=== PATIENT | female | born 1955 | race Caucasian/White ===

== ENCOUNTER 2019-10-22 17:43 | Inpatient (IN) ==
--- NOTE | 2019-10-22 18:34 | PROVIDER DOCUMENTATION ---
HPI-Abdominal Pain/GI Problem - General Chief Complaint: Abdominal Pain Stated Complaint: ABD PAIN / SOB Time Seen by Provider: 10/22/19 18:12 Source: patient Allergies/Adverse Reactions: Patient Allergies Allergy/AdvReac Type Severity Reaction Status Date / Time codeine Allergy ITCHING Verified 01/24/19 15:37 Home Medications: Home Medication List Medication Instructions Recorded Confirmed Last Taken Type Citalopram [Celexa] 40 mg PO DAILY 01/24/19 10/23/19 10/22/19 09:00 History Losartan Potassium 100 mg PO DAILY 01/24/19 10/23/19 10/22/19 09:00 History Meloxicam 15 mg PO DAILY 01/24/19 10/23/19 10/22/19 09:00 History Multivitamin [Multivitamins] 1 ea PO DAILY 01/24/19 10/23/19 10/22/19 09:00 History - History of Present Illness-ABD Nature of Presenting Problems: Patient is a 64 year old white female,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 Patient is already under the care of DR. De Leon for evaluation of her abdominal pain. pateint ate chili today. Just arrived from work. Abdominal Pain Onset Location: reports: generalized abdomen Quality of Pain: reports: aching Onset/Duration: reports: other (over 1 month) Activities at Onset: reports: none Associated Symptoms: reports: nausea. denies: vomiting Last BM: this afternoon Dark Stools Present?: reports: none noticed Rectal Bleeding: reports: none Rectal Pain: reports: none Emesis Description: reports: none Review of Systems - Adult - REVIEW OF SYSTEMS - ADULT Constitutional: denies: chills, fever Eyes: reports: no symptoms reported Ears, Nose, Mouth & Throat: reports: no symptoms reported Cardiovascular: denies: chest pain Respiratory: reports: shortness of breath, wheezing. denies: cough Gastrointestinal: reports: abdominal pain (upper abdomen), constipation, diarrhea, nausea. denies: vomiting Genitourinary: denies: dysuria Musculoskeletal: reports: no symptoms reported Integumentary: reports: no symptoms reported Neurological: reports: no symptoms reported Psychiatric: reports: no symptoms reported Endocrine: reports: no symptoms reported Hematologic/Lymphatic: reports: no symptoms reported Allergic/Immunologic: reports: no symptoms reported All Other Systems: Reviewed and Negative Past History - Adult - PAST MEDICAL HISTORY-ADULT Review of Records: reports: Old Records Reviewed, Nursing Assessment Review, Medications Reviewed, Social history reviewed & non-contributory. Major Childhood Illnesses: reports: denies history Cardiovascular: reports: denies history Respiratory: reports: COPD Gastrointestinal: reports: denies history Genitourinary: reports: denies history Musculoskeletal: reports: denies history Neurological: reports: denies history Psychiatric: reports: denies history Endocrine/Immune: reports: denies history - PRIOR SURGERIES/PROCEDURES Surgical/Procedure History: reports: cholecystectomy - IMMUNIZATION STATUS Childhood Immunizations: UTD, See Nurse Assessment Flu Vaccine: See Nurse Assessment - FAMILY HISTORY Family History: reviewed, not pertinent - SOCIAL HISTORY Smoking: less than 1 pack/day (1/2 ppd for past 30 years) Substance Use: denies Alcohol Use Frequency: occasionally Living Situation: family Occupation: poultry worker Physical Exam-General - PHYSICAL EXAM-ADULT Initial Vital Signs Reviewed: Yes - CONSTITUTIONAL General Appearance: alert, obese - EYES Eyes: other (clear) - HEAD, EARS, NOSE, MOUTH & THROAT HENMT: normocephalic/atraumatic, moist mucous membranes - NECK Neck: non-tender, full range of motion, supple - RESPIRATORY Respiratory: no respiratory distress, no accessory muscle use, decreased breath sounds, wheezing - CARDIOVASCULAR Cardiovascular: normal peripheral pulses, regular rate, rhythm - GASTROINTESTINAL (ABDOMEN) Abdominal Exam: soft, tenderness (epigastric tenderness). negative: guarding, rebound - LYMPHATIC Lymphatic: no adenopathy - MUSCULOSKELETAL Back Exam: no CVA tenderness Extremity: normal range of motion, non-tender Peripheral Pulses: radial (R): 2+, radial (L): 2+ - SKIN Integumentary: normal color, normal turgor, warm/dry - NEUROLOGIC Neurologic: grossly normal - PSYCHIATRIC Psych/Mental Status: oriented x 3, anxious Progress - PLAN OF CARE/RESULTS Progress/Plan/Lab Results: Vital Signs - 8 hr 10/22/19 17:48 Temperature 97.8 F Pulse Rate 87 Respiratory Rate 22 Blood Pressure 154/106 O2 Sat by Pulse Oximetry 93 L Orders Category Date Time Status Saline Loc DIRECTED Care 10/22/19 18:12 Active NPO Diet 10/22/19 18:12 Active FLAT/UPRIGHT ABD/1 VIEW CHEST [RAD] Stat Exams 10/22/19 18:21 Ordered CBC WITH ELECTRONIC DIFF [HEME] Stat Lab 10/22/19 18:12 Ordered COMPREHENSIVE METABOLIC PANEL [CHEM] Stat Lab 10/22/19 18:12 Uncollected LIPASE [CHEM] Stat Lab 10/22/19 18:12 Uncollected URINALYSIS W/POSS RFLX CULT [URINALYSIS] Stat Lab 10/22/19 18:12 Uncollected Result Diagrams: 10/22/19 18:30 10/22/19 18:30 - CONSULTS/PCP/HOSPITALIST Notification #1 *Consult/PCP/Hospitalist*: Dr. Ortega Time Discussed: 22:30 Consult Disposition: Admit Departure - Departure Date of Disposition Decision: 10/22/19 Time of Disposition Decision: 23:29 DIAGNOSIS: CHF (congestive heart failure) Qualifiers: Heart failure type: unspecified Heart failure chronicity: acute Qualified Code(s): I50.9 - Heart failure, unspecified Disposition: ADMITTED INPATIENT 09 Certified Medical Emergency: Emergent Condition: Stable - Critical Care Note This patient required my direct & personal management of CC.: No Attestation - Physician/ HERIBERTO Attestation Patient care was provided by Advanced Practice Provider:: No The physician spent face to face time with patient:: Yes Advanced Practice Provider documentation review:: Supervising physician onsite and consulted in the evaluation and care of this patient. The physician did have a face to face encounter with the patient.
[2019-10-22 18:40] LABS: URINE SOURCE CLEAN CATCH
[2019-10-22 18:44] LABS: BASO# 0.04 X1000 (0.0-0.2); BASO% 0.6 % (0.0-0.8); EOS# 0.11 X1000 (0.0-0.7); EOS% 1.5 % (0.0-10.0); HEMATOCRIT 41.7 % (37.0-47.0); HEMOGLOBIN 13.6 g/dL (12.0-16.0); IMM GRAN# 0.01 X1000 (0.0-0.04); IMM GRAN% 0.1 % (0.0-0.5); LYMPH# 1.71 X1000 (1.2-3.4); LYMPH% 23.7 % (20.5-51.1); MCH 31.9 PG (27-31); MCHC 32.6 g/dL (33-37); MCV 97.9 FL (81-99); MONO# 0.47 X1000 (0.11-0.59); MONO% 6.5 % (1.7-9.3); MPV 11.8 FL (7.4-10.4); NEUT# 4.89 X1000 (1.4-6.5); NEUT% 67.6 % (42.2-75.2); PLT 175 X1000 (130-400); RBC 4.26 XMIL (4.2-5.4); RDW 13.6 % (11.5-14.5); WBC 7.23 X1000 (4.8-10.8)
[2019-10-22 18:51] LABS: BILIRUBIN URINE NEGATIVE (NEGATIVE); BLOOD URINE NEGATIVE (NEGATIVE); COLOR YELLOW; GLUCOSE URINE NEGATIVE (NEGATIVE); KETONE URINE NEGATIVE (NEGATIVE); LEUKOCYTES URINE SMALL (NEGATIVE); NITRITE URINE NEGATIVE (NEGATIVE); PROTEIN URINE TRACE mg/dL (NEGATIVE); SP GRAVITY URINE 1.021; TURBIDITY URINE CLEAR (CLEAR); UROBILINOGEN URINE NORMAL (NORMAL)
[2019-10-22 18:53] LABS: UR EPITHELIAL CELLS <10 /HPF (<10); URINE BACTERIA NEGATIVE /HPF; URINE RBC <10 /HPF (<10); URINE WBC <10 /HPF (<10)
[2019-10-22 19:18] LABS: AGAP 12; ALBUMIN 4.6 g/dL (3.5-5.0); ALKALINE PHOSPHATASE 87 U/L (32-104); BUN 16 mg/dL (8-22); CALCIUM 9.4 mg/dL (8.8-10.2); CHLORIDE 105 mmol/L (98-107); COSMO 278; CREATININE 0.7 mg/dL (0.5-0.9); ESTIMATED GFR > 60; GLUCOSE 111 mg/dL (70-104); GOT 22 U/L (10-30); GPT 34 U/L (10-36); LIPASE 24 U/L (13-60); POTASSIUM 4.4 mmol/L (3.5-5.1); SODIUM 138 mmol/L (136-145); TCO2 21 mmol/L (25-35); TOTAL PROTEIN 7.3 g/dL (6.3-8.3)
--- NOTE | 2019-10-22 21:30 | Diag Imaging Result Doc PS360 ---
FLAT/UPRIGHT ABD/1 VIEW CHEST - 10/22/2019 INDICATION: wr TECHNIQUE: COMPARISON: 03/16/2019 FINDINGS: There is cardiomegaly and pulmonary vascular congestion. There is some minimal ill-defined infiltrate or edema in the lung bases. Stable calcified granulomas in the left lung. There are cholecystectomy clips. No definite bowel obstruction or free air. IMPRESSION: 1. Cardiomegaly. Hazy infiltrates in the lung bases may represent pulmonary edema or bronchopneumonia. 2. No acute process in the abdomen. Electronically signed by Dayton Argueta 10/22/2019 9:28 PM
--- NOTE | 2019-10-22 21:50 | Diag Imaging Result Doc PS360 ---
CT ABD/PELVIS/PULM ARTERIES - 10/22/2019 INDICATION: sob TECHNIQUE: Axial CT images were obtained after administering intravenous contrast. Coronal MIP images were generated. COMPARISON: None FINDINGS: CHEST: There is no pulmonary embolism. No adenopathy. There is mild cardiomegaly. There is a small right and trace left pleural effusion. There is hazy interstitial pulmonary edema diffusely throughout the lungs. There are moderate degenerative changes of the spine. No acute or suspicious bony lesion. Abdomen pelvis: There are cholecystectomy clips. There is a small left adrenal gland nodule. This measures about 1.8 cm. Otherwise abdominal organs enhance normally. There is severe diverticulosis throughout the colon. No bowel obstruction or inflammation. Normal appendix. No free air or free fluid. Urinary bladder, uterus, and rectum are normal. There is moderate vascular disease. There are advanced degenerative changes of the spine. No acute or suspicious bony lesion. IMPRESSION: 1. Congestive heart failure. No pulmonary embolism. 2. Small nonspecific left adrenal gland nodule of doubtful significance. 3. Severe diverticulosis throughout the colon. This exam was performed using automated exposure control, adjustment of mA or kV according to patient size, and/or use of iterative reconstruction technique Electronically signed by Dayton Argueta 10/22/2019 9:47 PM
[2019-10-22] MEDS ORDERED: LASIX IV ONE (22:25)
[2019-10-22] MEDS ORDERED: LASIX IV SCH (23:15)
--- NOTE | 2019-10-22 23:29 | EKG Report ---
Test Performed on : 10/22/2019 10:23:29 PM Test Reason : pain Blood Pressure : / mmHG Vent. Rate : 083 BPM Atrial Rate : 083 BPM P-R Int : 144 ms QRS Dur : 142 ms QT Int : 448 ms P-R-T Axes : 055 -35 092 degrees QTc Int : 526 ms Normal sinus rhythm. Possible Left atrial enlargement Left axis deviation Left bundle branch block Abnormal ECG No previous ECGs available Confirmed by Mark Anthony Patel MD ([id number]), purchase request editor Coty Gunn ([id number]) on 11/29/2019 12:38:01 PM
[2019-10-23 07:49] LABS: AGAP 14; BUN 15 mg/dL (8-22); CALCIUM 9.2 mg/dL (8.8-10.2); CHLORIDE 104 mmol/L (98-107); COSMO 285; CREATININE 0.6 mg/dL (0.5-0.9); ESTIMATED GFR > 60; GLUCOSE 113 mg/dL (70-104); POTASSIUM 3.8 mmol/L (3.5-5.1); SODIUM 142 mmol/L (136-145); TCO2 25 mmol/L (25-35)
[2019-10-23 08:01] LABS: TSH 1.55 uIUmL (0.27-4.20)
--- NOTE | 2019-10-23 10:17 | HISTORY AND PHYSICAL ---
PRIMARY CARE PROVIDER: Dr. De Leon. CHIEF COMPLAINT: Shortness of breath. HISTORY OF PRESENT ILLNESS: Ms. Rosenberg is a 64-year-old female, who carries a past medical history of hypertension, anxiety, tobacco use. Reports a 25 pound weight gain since the spring without any significant change in her diet, but denies any significant swelling except for in her abdomen. She reports over the past month or so she has been feeling more short of breath, and she has felt like she has had a knot in her upper mid epigastric area. She also reports that she sleeps in a recliner most nights, but if she does sleep in the bed, she is propped up on multiple pillows. If she tries to lie on her side, she does get a sharp pain in her lungs, but she reports she does not have to sleep sitting up, she chooses to sleep sitting up. However, over the past month, just doing chores around the house or getting up to go to the bathroom, she has noticed that she has become increasingly short of breath and she has to stop and rest. She does have occasional dizziness, some nausea. No chest pain per se or palpitations however, but she did report on [place] she felt like her heart was racing. However, she did feel it was an anxiety attack because she was trying to prepare for [place], and having family over. She also reports she alternates between diarrhea and constipation. She drinks excessively large amounts of water, as well as coffee. She has felt like she has had some subjective fevers, but no chills. She states she does sweat in her sleep at night, but this has been ongoing for years. This is nothing new for her. Workup in the ED revealed an elevated D-dimer which prompted a CT of the chest, abdomen and pelvis that showed pulmonary edema and cardiomegaly and severe diverticulosis. She was initiated on IV Lasix. She has had 2 sets of negative troponins. We will continue with IV diuresis. Check an echocardiogram and venous Dopplers. PAST MEDICAL HISTORY: 1. Hypertension. 2. Anxiety. PAST SURGICAL HISTORY: Cholecystectomy. SOCIAL HISTORY: She is not . She lives alone. She is a half a pack a day smoker, has done so for 30+ years. No alcohol or illicit drug use. She does like to drink lots of water and coffee. She does work at [employer]. FAMILY HISTORY: Mother of congestive heart failure. ALLERGIES: Codeine. HOME MEDICATIONS: 1. Celexa 40 mg p.o. daily. 2. Losartan potassium 100 mg p.o. daily. 3. Multivitamin 1 each p.o. daily. 4. Mobic 15 mg p.o. daily. REVIEW OF SYSTEMS: Twelve-point review of systems completely negative, except for those mentioned in HPI. PHYSICAL EXAMINATION: VITAL SIGNS: Temperature is 98.1 degrees, heart rate 77, respirations 18, blood pressure was 156/101, O2 is 94% on room air. GENERAL: Ms. Rosenberg is an anxious-appearing, 64-year-old female, who is lying in the bed in no acute distress. HEENT: Atraumatic, normocephalic. PERRL. NECK: Supple. Trachea midline. CARDIOVASCULAR: S1, S2 appreciated. No murmurs, gallops or rubs noted. RESPIRATORY: Lung sounds are clear bilaterally. GI: Soft, nontender, nondistended. Positive bowel sounds 4 quadrants. EXTREMITIES: Lower extremities are negative for edema. NEUROLOGIC: No focal deficits noted. She is somewhat anxious. DIAGNOSTIC DATA: CT of the abdomen and pelvis and pulmonary arteries show congestive heart failure. No PE. Small nonspecific left adrenal gland nodule of doubtful significance. Severe diverticulosis throughout the colon. LABORATORY DATA: White count 7, hemoglobin and hematocrit 13 and 41, platelet count is 175. D- dimer 1.62. Sodium 138, potassium 4.4. BUN 16, creatinine 0.7, blood glucose is 111. Two sets of troponins have been negative. ProBNP was 5154. Urinalysis is negative. ASSESSMENT AND PLAN: 1. New onset congestive heart failure exacerbation. Patient has been initiated on intravenous Lasix. We will continue with her home losartan. Strict intakes/outputs, daily weights. We will check an echocardiogram. Continue to trend her cardiac enzymes. 2. Hypertension. Continue home medications. 3. Anxiety. We will continue her home Celexa. 4. Severe diverticulosis. We gave patient education material on diverticulosis. 5. Tobacco use and abuse. Educated patient on smoking cessation, as well as the means to quit. We will need to continue daily education. Further recommendation to follow physician evaluation, laboratory data, diagnostic data. Dictated by ISABEL Olmstead for Seymour Ortega MD cc: MD Akiko Martin MD [facility]
[2019-10-23] MEDS: CELEXA PO SCH (10:34)
[2019-10-23] MEDS: COZAAR PO SCH (10:34)
[2019-10-23] MEDS: MOBIC PO SCH (10:34)
[2019-10-23] MEDS: THERA M PLUS PO SCH (10:35)
[2019-10-23] MEDS: LASIX IV SCH ×2 (10:35→22:00)
--- NOTE | 2019-10-23 12:02 | Vascular Study Report ---
Venous U/S Bilateral Legs - 10/23/2019 INDICATION: elevated d dimer TECHNIQUE: COMPARISON: None FINDINGS: The veins of the lower extremities are fully compressible. There is normal color and pulse wave Doppler signal. IMPRESSION: Negative exam. Electronically signed by Dayton Argueta 10/23/2019 12:00 PM
[2019-10-23 16:38] LABS: T4 6.93 ug/dL (4.60-12.00)
--- NOTE | 2019-10-23 18:26 | HISTORY AND PHYSICAL ---
ADDENDUM: Patient seen and examined by myself. Full note dictated and discussed with nurse practitioner. The patient presented to the hospital with increased cough and congestion, increased work of breathing. She has recently seen Dr. De Leon. We are going to place her on Lasix and follow her for acute systolic congestive heart failure exacerbation. cc: Seymour Ortega MD
[2019-10-24] MEDS: MOBIC PO SCH (08:51)
[2019-10-24] MEDS: THERA M PLUS PO SCH (08:51)
[2019-10-24] MEDS: COZAAR PO SCH (08:52)
[2019-10-24] MEDS: CELEXA PO SCH (08:52)
[2019-10-24] MEDS: LASIX IV SCH (10:36)
--- NOTE | 2019-10-24 12:33 | PROGRESS NOTE ---
DATE: 10/24/2019 SUBJECTIVE: Patient without any new complains. States that is still fatigued and tired but does admit that she is feeling a little bit better. PHYSICAL EXAMINATION: Vital signs: Temperature 98 degrees, pulse 67, respiratory rate 18, BP 141/80, sat 93% on 2 L. General: Patient is very pleasant. She is in no distress. HEENT: Normocephalic. Neck: Supple. Cardiovascular: Regular rate. Chest: Positive upper airway noise, otherwise clear. No wheezing, no crackles. Abdomen: Soft, nondistended. Extremities: Moves all extremities. ASSESSMENT: 1. Congestive heart failure exacerbation. Echo still pending. 2. Hypertension. 3. Anxiety. 4. Chronic tobacco abuse. PLAN: We are going to continue patient in the hospital. Continue to discuss with her the purpose and reasons of stopping smoking. We will continue Lasix although will decrease to 40 IV daily and will follow. cc: Seymour Ortega MD
[2019-10-25] MEDS ORDERED: FLU VACCINE IM ONE (09:00)
[2019-10-25] MEDS ORDERED: LASIX IV SCH (09:00)
[2019-10-25] MEDS: MOBIC PO SCH (09:04)
[2019-10-25] MEDS: CELEXA PO SCH (09:04)
[2019-10-25] MEDS: THERA M PLUS PO SCH (09:04)
[2019-10-25] MEDS: COZAAR PO SCH (09:04)
--- NOTE | 2019-10-25 09:31 | ECHO REPORT ---
ORDER DATE: 10/23/2019 REQUESTING PHYSICIAN: Hospitalist. CHIEF COMPLAINT: Dyspnea. M-MODE MEASUREMENTS: Right ventricle: cm. Left ventricle end diastole: 5.5 cm. Left ventricle end systole: 4.5 cm. Posterior wall: 1.1 cm. Interventricular septum: 1.3 cm. Left atrium: Is not measured. Aortic diameter: 2.7 cm. SUMMARY OF 2-DIMENSIONAL IMAGIN. The left ventricular chamber is significantly dilated. The end systolic volume appears to be in the neighborhood of 83 ml per m2 BSA. There is global impairment of the systolic function of the left ventricle with ejection fraction that may be as low as 34% and as high as 37%. There is basal inferior and inferior interventricular septum hypokinesis more than the rest. That may suggest coronary heart disease. 2. Aortic valve shows no significant abnormality. Color flow mapping is unremarkable. 3. Mitral valve shows a moderate to moderately severe degree of regurgitation. 4. There is reversal of the E and A ratio 5. Tissue Doppler of septal and lateral mitral annulus averages 5 cm. There is impaired left ventricular relaxation consistent with diastolic dysfunction. 6. Tricuspid valve shows a mild to moderate degree of regurgitation with pulmonary pressure estimated to be in the neighborhood of 46 to 51 mmHg. 7. Pulmonary valve is unremarkable. 8. There is no pericardial effusion, masses or thrombus. 9. The right-sided chambers may be at the upper limits of normal. Clinical correlation is strongly recommended. cc: Nick Daly MD MTDD
--- NOTE | 2019-10-25 21:59 | PROGRESS NOTE ---
DATE: 10/25/2019 SUBJECTIVE: Patient states she is feeling better. Still having some mid epigastric discomfort, but overall wants to go home. Denies any fevers or chills. PHYSICAL EXAMINATION: Vital signs: Temperature 97 degrees, pulse 64, respiratory rate 18, BP 139/89. General: Patient is awake, pleasant. She is in no respiratory distress. HEENT: Normocephalic. Neck: Supple. Cardiovascular: Regular rate. Chest: Clear. Abdomen: Soft. Extremities: Moves all extremities. ASSESSMENT: 1. New onset congestive heart failure with an ejection fraction of around 35%. 2. Hypertension. 3. Anxiety. 4. Severe diverticulosis. 5. Tobacco abuse. Counseling for reasons and ways to stop. PLAN: We are going to continue patient in the hospital, although, she would like to be discharged. Echo was read as probable coronary disease. We will need to perform a stress test and we will follow. cc: Seymour Ortega MD
--- NOTE | 2019-10-26 06:28 | EKG Report ---
Test Performed on : 10/26/2019 05:50:12 AM Test Reason : Chest Pain Blood Pressure : / mmHG Vent. Rate : 069 BPM Atrial Rate : 069 BPM P-R Int : 146 ms QRS Dur : 152 ms QT Int : 508 ms P-R-T Axes : 068 -39 086 degrees QTc Int : 544 ms Sinus rhythm. with premature atrial complexes. Possible Left atrial enlargement Left axis deviation Left bundle branch block Abnormal ECG When compared with ECG of 22-OCT-2019 22:23, (Unconfirmed) premature atrial complexes. are now present Confirmed by Mark Anthony Patel MD ([id number]) on 11/04/2019 1:50:46 AM
[2019-10-26] MEDS ORDERED: LASIX PO SCH (09:00)
[2019-10-26] MEDS ORDERED: LEXISCAN ONE (09:02)
[2019-10-26] MEDS: CELEXA PO SCH (10:28)
[2019-10-26] MEDS: THERA M PLUS PO SCH (10:28)
[2019-10-26] MEDS: MOBIC PO SCH (10:28)
[2019-10-26] MEDS: COZAAR PO SCH (10:28)
[2019-10-26 11:21] LABS: I-STAT CREATININE 0.9 mg/dL (0.6-1.3)
--- NOTE | 2019-10-26 14:40 | Diag Imaging Result Document ---
PROCEDURE NAME: MYOCARDIAL PERF SCAN, STR/REST - 10/26/2019 INDICATION: Chest pain. PROCEDURES PERFORMED: 1. Lexiscan stress. 2. One-day stress rest myocardial perfusion imaging (rest dose 11.7 millicuries, stress dose 35.6 mCi). FINDINGS: PERFUSION IMAGING RESULTS: 1. Baseline EKG shows sinus rhythm with a nonspecific intraventricular conduction block, it appears to be a left bundle type. 2. No clear evidence of ischemic related EKG changes or significant arrhythmias. PERFUSION IMAGING RESULTS: 1. No evidence of abnormal extracardiac uptake. 2. TID ratio is 1.1. 3. Perfusion imaging shows a moderate-sized fixed defect in the anterior apical, mid anterior, and portions of the anterior septum. This is fixed, mild in intensity, and most likely suggestive of breast shadow. There is no evidence of ischemic changes. It is mild in intensity. 4. There is a severe reduction in LV systolic function with a calculated ejection fraction of 18%. There is a dilated left ventricle with an end-diastolic dimension of 232, end-systolic volume of 189. Severe global hypokinesis is noted. LV appears slightly more contract tile at the bases, but diffusely poor function. cc: MD Janet Hager CRNP
[2019-10-26 15:15] VITALS: BP 148/92
[2019-10-26] MEDS ORDERED: ENTRESTO 24 MG-26 MG TABLET PO ONE (15:53)
--- NOTE | 2019-10-26 17:31 | DISCHARGE SUMMARY ---
ADMISSION DATE: 10/22/2019 DISCHARGE DATE: 10/26/2019 ADDENDUM: The patient seen and examined by myself. Full note dictated and discussed with nurse practitioner. On discharge the patient is awake and alert. She is in no distress. The patient states that she is overall feeling better. She is still having some shortness of breath occasionally with ambulation. She did undergo a stress test which was effectively negative for acute coronary disease. However, she did have an EF around 20%. The patient was discussed with Dr. Daly regarding her echo and stress test. We are going to attempt to schedule an outpatient cardiac CT and have her follow up with Dr. Daly after that test. Discussed with Miss Rosenberg the use of Entresto. She currently is on losartan. Therefore, we can switch straight to Entresto. Did write her a prescription. However, discussed with her that if her insurance requires prior authorization that she will need to continue her losartan until she can get approval. She voiced understanding. We again discussed with her the importance of stopping smoking. cc: Seymour Ortega MD
--- NOTE | 2019-10-26 17:56 | DISCHARGE SUMMARY ---
ADMISSION DATE: 10/22/2019 DISCHARGE DATE: PRIMARY CARE PHYSICIAN: Dr. De Leon. ADMISSION DIAGNOSIS: 1. New onset congestive heart failure exacerbation. 2. Hypertension. 3. Anxiety. 4. Severe diverticulosis. 5. Tobacco use and abuse. DISCHARGE DIAGNOSIS: 1. New onset congestive heart failure systolic with ejection fraction of 34 to 37 percent per echocardiogram. 2. Hypertension. 3. Anxiety. 4. Severe diverticulosis. 5. Tobacco abuse summary. SUMMARY OF FINDINGS: This is a 64-year-old female who reports a 25 pound weight gain since the spring without any significant change in her diet. Denies any significant swelling except for her abdomen. She has been feeling more short of breath and like she has a knot in her upper mid epigastric area. Sleeps in a recliner most nights. If she does sleep in the bed she is propped up on multiple pillows. If she tries to lay on her side she would get a sharp pain in her lungs. She reports that she does not have to sleep sitting up but she chooses to sleep sitting up, over the past month her chores around the house and getting up to go the bathroom have become more difficult with increasing shortness of breath and having to stop and rest, has occasional dizziness with some nausea. She drinks excessively large amounts of water as well as coffee. She had an elevated D-dimer which prompted a CT of the chest, abdomen and pelvis that showed pulmonary edema and cardiomegaly. She had 2 sets of negative troponins. She was admitted. We diuresed her. We did do an echocardiogram on 10/23 that showed an ejection fraction of 34 to 37 percent with impairment of systolic function. We did a bilateral lower extremity venous Doppler that was negative, we did a myocardial perfusion scan today that showed severe reduction in LV systolic function with a calculated ejection fraction of 18% that showed a moderate-sized fixed defect in the anterior apical and mid anterior and portions of the anterior septum that was fixed with mild intensity. No evidence of ischemic changes. This was discussed with on-call Cardiology who felt that she could safely be discharged home. We are going to try to get her approved for Entresto, if we are unable to do that she will continue her home medications as previous but now we will try to give her prescription for Entresto 24/26 mg 1 p.o. b.i.d. #60 with no refills, citalopram 40 mg p.o. daily, losartan 100 mg p.o. daily, meloxicam 15 mg p.o. daily, multivitamin p.o. daily. FOLLOWUP: [facility] to schedule her followup appointment with Dr. Daly and she will need to follow up with her primary care physician in the next 1 to 2 weeks and call his office for an appointment. All discharge instructions have been reviewed with the patient and she verbalized understanding. TIME SPENT: 35 minutes. Dictated by ISBAEL Camacho for Seymour Ortega MD cc: MD Seymour Segundo MD
== END 2019-10-26 17:48 | disposition home or self-care (01) ==
LOC: P.ED 17:43 → P.MEDSURG 22:47
PROVIDERS: ATTEND Family Medicine